=== PATIENT | male | born 1995 | race African-American/Black ===

== ENCOUNTER 2016-07-07 06:07 | Emergency (ER) | payer OTHER ==
[~2016-07-07] VITALS: Ht 188 cm; Wt 96.0 kg
[~2016-07-07 06:07] MED LIST: IBUPROFEN200 M2 PO; ZYRTEC10 M3 PO; ZYRTEC10 MG PO
--- NOTE | 2016-07-07 06:58 | ED INFLUENZA/URI COMPLAINT ---
History of Present Illness General Chief Complaint: Upper Respiratory Sx/Fever Stated Complaint: URI WITH CHILLS, SOB, HX OF ALLERGIES] Source: patient, family Exam Limitations: no limitations Vital Signs & Intake/Output Vital Signs & Intake/Output Vital Signs Date Time Temp Pulse Resp B/P B/P Pulse O2 O2 Flow FiO2 Mean Ox Delivery Rate 07/07 825 98.0 80 16 131/72 Room Air 07/07 0801 99 07/07 0718 97.0 86 18 131/76 96 Room Air 07/07 0654 99.1 07/07 0624 99.1 115 20 132/76 95 Room Air Allergies Coded Allergies: No Known Allergies (06/14/15) Reconcile Medications Albuterol Sulfate (Proair Hfa) 90 MCG HFA.AER.AD 2 PUF INH Q4-6 PRN PRN bronchitis Benzonatate (Tessalon Perle) 100 MG CAPSULE 1 CAP PO TID PRN cough Cetirizine HCl (Zyrtec) 10 MG TABLET 1 TAB PO PRN ALLERGIES (Reported) Ibuprofen 200 MG TABLET 1 TAB PO PRN PAIN (Reported) Triage Note: PT TO ED WITH COMPLAINTS OF DIFFICULTY BREATHING THAT STARTED ON SATURDAY. PT STATES HE HAS BEEN CONGESTED ALL WEEK. O2 SAT 95% ON RA. Triage Nurses Notes Reviewed? yes HPI: For the past 4 days patient has been having a nonproductive cough and wheezing. Positive chills but no fevers. Patient is not a smoker. There is no orthopnea. There is no chest pain or chest tightness. There is no dysuria. There is no nausea or vomiting. Past History Travel History Traveled to [place] past 21 day No Medical History Any Pertinent Medical History? 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 No Review of Systems Review of Systems Constitutional: Reports: see HPI, chills. EENTM: Reports: no symptoms. Respiratory: Reports: see HPI, cough, wheezing. Cardiovascular: Reports: no symptoms. GI: Reports: no symptoms. Musculoskeletal: Reports: no symptoms. Immunologic/Allergic: Reports: no symptoms. Physical Exam Physical Exam General Appearance: well developed/nourished, alert, awake, mild distress Head: atraumatic, normal appearance Eyes: Bilateral: PERRL, EOMI. Ears, Nose, Throat: normal ENT inspection, moist mucous membrane, hearing grossly normal Neck: normal inspection, supple, full range of motion Respiratory: chest non-tender, wheezing, GOOD AIR ENTRY Cardiovascular: regular rate/rhythm, normal peripheral pulses Gastrointestinal: normal bowel sounds, soft, non-tender, no organomegaly Neurologic/Psych: no motor/sensory deficits, awake, alert, oriented x 3, normal gait, normal mood/affect Lymphatic: no anterior cervical justyna Core Measures Severe Sepsis Present: No Septic Shock Present: No Progress Differential Diagnosis: pneumonia Plan of Care: Orders Procedure Date/time Status XRY-CHEST XRAY, PA AND LATERAL 07/07 656 Active Current Medications Sig/Yadira Start time Last Medication Dose Stop Time Status Admin Albuterol Sulfate 3 ML ONCE ONE 07/07 699 UNVr (Proventil) 07/07 700 Ibuprofen 600 MG ONCE ONE 07/07 699 AC 07/07 (Motrin) 07/07 700 0654 Ipratropium Randolph 2.5 ML ONCE ONE 07/07 699 UNVr (Atrovent) 07/07 700 Diagnostic Imaging: Viewed by Me: Radiology Read. Discussed w/RAD: Radiology Read. CXR Impression: SEE BELOW Initial ED EKG: none Comments: PATIENT: LAURA RO PRESENT AGE: 20 PATIENT ACCOUNT NO: [id number] : 94 LOCATION: [facility] ORDERING PHYSICIAN: MISHEL MAO MD SERVICE DATE: 07/07/16 EXAM TYPE: RAD - XRY-CHEST XRAY, PA AND LATERAL EXAMINATION: XR CHEST CLINICAL INFORMATION: Cough, fever COMPARISON: None TECHNIQUE: The chest is imaged in 2 frontal views and a lateral projection for a total of 3 views. FINDINGS: The lungs are clear. The vascularity is normal. There is no airspace consolidation or effusion. The heart is normal in size. The hilar and mediastinal contours and bony structures are unremarkable other than a borderline levocurvature mid to lower thoracic spine. IMPRESSION: Lungs clear. No airspace consolidation or effusion. DICTATED BY: BERNICE MOTA MD DATE/TIME DICTATED:07/07/16806 COOK COLD MEAT:DERRELL DATE/TIME TRANSCRIBED:07/07/16806 CONFIDENTIAL, DO NOT COPY WITHOUT APPROPRIATE AUTHORIZATION. <Electronically signed in Other Vendor System> SIGNED BY: BERNICE MOTA MD 812 Patient is feeling much better after the DuoNeb. There is better air entry. Departure Departure Disposition: HOME OR SELF CARE Condition: Stable Clinical Impression Primary Impression: Bronchitis Referrals: BLAISE VILLASEÑOR,CIPRIANO Pena (PCP/Family) Additional Instructions: Use the inhaler and take the cough medicine as needed. If you're not starting to feel better within the next 2 days then get the antibiotic filled. Return for any concerns. Departure Forms: Customer Survey General Discharge Information Prescriptions: Current Visit Scripts Benzonatate (Tessalon Perle) 1 CAP PO TID PRN cough #30 CAP Albuterol Sulfate (Proair Hfa) 2 PUF INH Q4-6 PRN PRN bronchitis #1 INHAL
--- NOTE | 2016-07-07 08:13 | RADIOLOGY REPORT ---
EXAMINATION: XR CHEST CLINICAL INFORMATION: Cough, fever COMPARISON: None TECHNIQUE: The chest is imaged in 2 frontal views and a lateral projection for a total of 3 views. FINDINGS: The lungs are clear. The vascularity is normal. There is no airspace consolidation or effusion. The heart is normal in size. The hilar and mediastinal contours and bony structures are unremarkable other than a borderline levocurvature mid to lower thoracic spine. IMPRESSION: Lungs clear. No airspace consolidation or effusion.
[2016-07-07 08:26] VITALS: BP 131/72
[2016-07-07] MEDS ORDERED: PROAIR HFA8.5 GM INH (08:27)
[2016-07-07] MEDS ORDERED: TESSALON PERLE100 M1 PO (08:27)
== END 2016-07-07 08:30 ==
LOC: ERH 06:07
DX: J40 Bronchitis, not specified as acute or chronic (principal)
CPT/HCPCS: 1263